=== PATIENT | female | born 1945 | race Caucasian/White ===

== ENCOUNTER 2018-07-07 15:14 | Inpatient (IN) | payer MEDICARE, OTHER ==
[~2018-07-07] VITALS: Ht 154.9 cm; Wt 123.8 kg
[2018-07-07 15:22] VITALS: BP 154/60
[2018-07-07] MEDS ORDERED: COLESTIPOL HCL1 G1 PO (15:24)
[2018-07-07] MEDS ORDERED: ALLOPURINOL 10100 M1 PO (15:24)
[2018-07-07] MEDS ORDERED: WELLBUTRIN 75 M75 M1 PO (15:24)
[2018-07-07] MEDS ORDERED: PROTONIX40 M1 PO (15:25)
[2018-07-07] MEDS ORDERED: LISINOPRIL10 MG PO (15:25)
[2018-07-07] MEDS ORDERED: INDAPAMIDE2.5 MG PO (15:25)
[2018-07-07] MEDS ORDERED: GLYBURIDE 2.52.5 MG PO (15:25)
[2018-07-07] MEDS ORDERED: TOPROL XL100 MG PO (15:25)
[2018-07-07] MEDS ORDERED: FLOMAX0.4 MG PO (15:26)
[2018-07-07] MEDS ORDERED: TYLENOL325 MG PO (15:26)
[2018-07-07] MEDS ORDERED: ZOLOFT50 MG PO (15:26)
[2018-07-07] MEDS ORDERED: ROPINIROLE HCL2 M1 PO (15:27)
[2018-07-07] MEDS ORDERED: [UNRECOGNIZED DRUG - OTHER] TOP (15:29)
[2018-07-07] MEDS ORDERED: ZANAFLEX2 MG PO (15:29)
[2018-07-07] MEDS ORDERED: FLORASTOR250 MG PO (15:30)
[2018-07-07] MEDS ORDERED: TRAMADOL 50 MG50 MG PO ×2 (15:30→15:31)
[2018-07-07] MEDS ORDERED: HYDROCORTISONE30 G9 RECTAL (15:30)
[2018-07-07 15:50] LABS: ABSOLUTE BASOPHILS 0.1 thou/uL (0.0-0.2); ABSOLUTE EOSINOPHILS 0.1 thou/uL (0.0-0.7); ABSOLUTE LYMPHOCYTES 1.2 thou/uL (0.8-5.3); ABSOLUTE MONOCYTES 0.5 thou/uL (0.0-1.2); ABSOLUTE NEUTROPHILS 4.2 thou/uL (1.6-8.1); BASOPHILS 0.9 %; EOSINOPHILS 2.3 %; HEMATOCRIT 39.3 % (37.0-47.0); HEMOGLOBIN 12.8 gm/dL (12.0-15.0); LYMPHOCYTES 19.4 %; MCH 27.8 pg (26.0-34.0); MCHC 32.5 g/dL (28.0-37.0); MCV 85.5 fL (80.0-100.0); MONOCYTES 7.9 %; MPV 8.4 fl. (7.2-11.1); NUCLEATED RBCS 0 /100WBC; PLATELET COUNT* 215 thou/uL (150-400); POLYS 69.5 %; RDW-CV 14.7 % (10.5-14.5)
[2018-07-07 15:58] LABS: ANION GAP 7 mmol/L (7-16); BUN 21 mg/dL (7-18); CALCIUM 8.4 mg/dL (8.5-10.1); CHLORIDE 103 mmol/L (98-107); CO2 29 mmol/L (21-32); CREATININE 1.3 mg/dL (0.6-1.3); GLUCOSE 172 mg/dL (70-99); POTASSIUM 3.4 mmol/L (3.5-5.1); SODIUM 139 mmol/L (136-145)
[2018-07-07 15:59] LABS: APTT 24.2 Seconds (25.0-31.3); PROTIME 10.7 Seconds (9.20-11.50)
[2018-07-07 16:09] LABS: ALKALINE PHOSPHATASE 104 U/L (46-116); NT-PRO BRAIN NAT PEPTIDE 1102 pg/mL (<300); SGOT 32 U/L (15-37); SGPT 29 U/L (30-65); TOTAL BILIRUBIN 0.6 mg/dL (<0.1-1.0); TROPONIN-I LEVEL <0.06 ng/mL (<0.06)
[2018-07-07 17:49] VITALS: BP 135/71
[2018-07-07 18:17] VITALS: BP 140/59
--- NOTE | 2018-07-07 19:56 | NUR ---
PATIENT ADMITTED TO ROOM 313 VIA ER 1800. PATIENT'S ADMISSION HISTORY AND VITALS OBTAINED CHARTED. PATIENT STATES FEELING GENERALIZED WEAKNESS, DENIES PAIN AT PRESENT TIME. PATIENT PROVIDED DINNER TRAY. DAUGHTER AT BEDSIDE TO HELP WITH ADMISSION HISTORY. HOME MEDS RECONCILED. ORIENTED TO ROOM, CALL LIGHT AND SURROUNDINGS. HOURLY ROUNDING MAINTAINED. CALL LIGHT WITHIN REACH. WILL CONTINUE WITH PLAN OF CARE.
[2018-07-07 23:42] VITALS: BP 122/51
[2018-07-08 04:26] LABS: CALCIUM 8.5 mg/dL (8.5-10.1); CREATININE 1.1 mg/dL (0.6-1.3); MAGNESIUM 1.5 mg/dL (1.8-2.4); POTASSIUM 3.4 mmol/L (3.5-5.1)
--- NOTE | 2018-07-08 05:23 | NUR ---
ASSESSMENT COMPLETE. PT SLEPT MOST OF THE NIGHT. PT REPORTS HEMORRHOID PAIN, TUCKS IN PLACE WITH RELIEF REPORTED. PT DENIES N/V. EDEMA NOTED TO BLE, ELEVATED WITH PILLOWS. PT IS Q2 TURN FOR SKIN INTEGRITY, REDNESS TO BUTTOCKS. PT IS ACCUCHECK. PT IS ON ROOM AIR WITH [place] SATS. PT IS FALL RISK, BED ALARM ON. UP WITH ONE ASSIST TO BSC. SEE ASSESSMENT AND VITALS FOR OTHER DETAILS. CALL LIGHT WITHIN REACH, WILL CONTINUE PLAN OF CARE
[2018-07-08 08:00] VITALS: BP 149/65
[2018-07-08 12:00] VITALS: BP 142/57
[2018-07-08 15:17] LABS: URINE BILIRUBIN NEGATIVE (Negative); URINE BLOOD TRACE (Negative); URINE CLARITY CLEAR; URINE COLOR YELLOW; URINE GLUCOSE-RANDOM NEGATIVE (Negative); URINE KETONES NEGATIVE (Negative); URINE NITRITE-REFLEX NEGATIVE (Negative); URINE PROTEIN NEGATIVE (Negative); URINE SPECIFIC GRAVITY 1.015 (1.005-1.030); URINE UROBILINOGEN 0.2 E.U./dl (0.2-1.0)
[2018-07-08 15:33] LABS: URINE LEUKOCYTES-REFLEX 2+ (Negative)
[2018-07-08 15:36] LABS: SQUAMOUS 4-10 Moderate /LPF (0-3)
[2018-07-08 15:37] LABS: BACTERIA-REFLEX >30 Many /HPF (None Seen); CASTS None Seen /LPF (None Seen); CRYSTALS None Seen /LPF (None Seen); URINE RBC 0-2 Rare /HPF (0-2)
--- NOTE | 2018-07-08 16:35 | NUR ---
SW met with pt to complete initial assessment, introduce self, and SW role. Pt lives at home alone. Pt was alert but fell asleep at times during conversation and may not be the best historian. Pt said she was at [facility] recently (she thinks she left on Thursday). Pt has children who live closeby. SW discussed safe dc planning and possible placement and pt is open to the thought of placement. SW to discuss with pt family as well. SW to continue to follow to assist with safe dc planning.
--- NOTE | 2018-07-08 16:36 | EKG ---
[place] [address] ELECTROCARDIOGRAM REPORT Name: SUDARSHAN MARSH Room: [address] ADM IN .R.#: [id number] Admission: 07/07/18 Attend Phys: Tio Ahmadi MD Discharge: Date of : 45 Report #: [id number] THIS REPORT FOR: //name// [facility] ED Test Date: 2018-07-07 Test Time: 15:22:08 Pat Name: SUDARSHAN MARSH Department: Room: [facility] Gender: F Switchboard Clerk: AM : 1945 Requested By: Nikos Herrera Order Number: [id number] MD: Gilbert Ayers Measurements Intervals [place] Rate: 89 P: 60 IA: 202 QRS: -37 QRSD: 101 T: 92 QT: 397 QTc: 484 Interpretive Statements Sinus rhythm Abnormal R-wave progression, late transition LVH with secondary repolarization abnormality No previous ECG available for comparison Electronically Signed On 07-08-2018 16:36:02 CDT by Gilbert Ayers [email or web address] <ELECTRONICALLY SIGNED> By: Gilbert Ayers MD, [facility] 07/08/18 1636 152 152 Gilbert Ayers MD, FAC /EPI
--- NOTE | 2018-07-08 16:41 | EKG ---
[place] [address] ELECTROCARDIOGRAM REPORT Name: MAXIMOSUDARSHAN Butler Room: [address] ADM IN M.R.#: [id number] Admission: 07/07/18 Attend Phys: Tio Ahmadi MD Discharge: Date of : 45 Report #: [id number] THIS REPORT FOR: //name// [facility] Test Date: 2018-07-07 Test Time: 21:46:48 Pat Name: SUDARSHAN MARSH Department: Room: [address] Gender: F [employer] Principal: : 1945 Requested By: Nikos Herrera Order Number: [id number] Milka MD: Gilbert Ayers Measurements Intervals [place] Rate: 82 P: 14 DE: 180 QRS: -31 QRSD: 100 T: 87 QT: 407 QTc: 476 Interpretive Statements Sinus rhythm Abnormal R-wave progression, late transition LVH with secondary repolarization abnormality No previous ECG available for comparison Electronically Signed On 07-08-2018 16:40:50 CDT by Gilbert Ayers [email or web address] <ELECTRONICALLY SIGNED> By: Gilbert Ayers MD, [facility] 07/08/18 1640 45 45 Gilbert Ayers MD, FACC /EPI
[2018-07-08 16:51] VITALS: BP 117/68
--- NOTE | 2018-07-08 18:15 | NUR ---
SHIFT NOTE - UA SENT THIS SHIFT. PT INC X 3 TODAY. UP TO COMMODE WITH ASSIST X 1. PT/OT WORKED WITH PT. TIERRA-CARE GIVEN TO REGION.
[2018-07-09] VITALS: BP 108/81
--- NOTE | 2018-07-09 05:06 | NUR ---
PT SLEPT THROUGH THE NIGHT. PT PLACED ON 2L PER NC, PT O2 ON ROOM AIR 87-89%. PT CURRENTLY 95% ON 2L. PT DOES NOT WEAR O2 AT HOME. PT SOA WITH MIN EXERTION. PT IS Q2 TURN FOR SKIN INTEGRITY. PT INCONT AT TIMES. PT/OT CURRENTLY ORDERED FOR WEAKNESS. PT IS UP ONE ASSIST WITH GAIT BELT AND WALKER TO BS. PT HAS IV IN RIGHT AC, SALINE LOCKED. PT IS FALL RISK, BED ALARM ON. SEE ASSESSMENT AND VITALS FOR OTHER DETAILS. CALL LIGHT WITHIN REACH, WILL CONTINUE PLAN OF CARE
[2018-07-09 05:34] LABS: CALCIUM 8.5 mg/dL (8.5-10.1); CREATININE 0.7 mg/dL (0.6-1.3); MAGNESIUM 1.4 mg/dL (1.8-2.4); POTASSIUM 4.1 mmol/L (3.5-5.1)
[2018-07-09 07:40] VITALS: BP 117/95
--- NOTE | 2018-07-09 15:52 | NUR ---
SW called and spoke with pt dtr Sabine about dc planning. Sabine expressed that she was aware that pt was found to have a UTI and is now on IV abx. SW discussed dc planning and pt dtr agrees pt would be unable to return home alone. [facility] was going to begin but never started as they too felt pt was not safe in home environment alone. Pt dtr hopeful for pt to be able to go to SNF again stating that she has more days available and asked to try [facility]. SW faxed referral to [facility]. SW discussed LTC placment needed if pt unable to be accepted to SNF. Pt dtr explained that they had looked into [facility] but they are unable to afford [facility] at this time. SW also discussed in home private duty care to consider as another option however that too would be expensive. SW to continue to follow to explore possible SNF at [facility] or LTC if SNF not an option and to continue to assist with safe dc planning.
--- NOTE | 2018-07-09 16:14 | NUR ---
PATIENT INCONTINENT OF URINE ALL SHIFT. PATIENT WOULDN'T INFORM NURSE THAT SHE WAS WET UNTIL NURSE WENT INTO TO CHECK ON PATIENT TO SEE IF PATIENT WAS WET. IV ROCEPHIN GIVEN THIS AM, PATIENT TO START PO ABX FOR URINE THIS EVENING. NO FURTHER COMPLAINTS OF PAIN AFTER TRAMADOL GIVEN THIS AM. MG REPLACED PER PROTOCOL FOR LEVEL OF 1.4, REDRAW SCHED FOR 1829. PATIENT TO TRANSFER TO ROOM 111 THIS SHIFT.
[2018-07-09 21:00] VITALS: BP 137/53
[2018-07-10 04:53] LABS: CALCIUM 8.5 mg/dL (8.5-10.1); CREATININE 0.9 mg/dL (0.6-1.3); MAGNESIUM 1.4 mg/dL (1.8-2.4); POTASSIUM 4.1 mmol/L (3.5-5.1)
--- NOTE | 2018-07-10 06:46 | NUR ---
PATIENT SLEPT PART OF THE NIGHT. PATIENT WAS GIVEN PAIN MEDICINE THREE TIMES WITH SOME RELIEF. PATIENT HAS BEEN STRESS INCONTINENT OF URINE AND UP TO URINATE FREQUENTLY. WILL CONTINUE TO MONITOR.
[2018-07-10 09:05] VITALS: BP 136/48
[2018-07-10 16:00] VITALS: BP 115/54
--- NOTE | 2018-07-10 19:22 | NUR ---
PATIENT REMAINED ALERT AND ORIENTED X'S 4. VITAL SIGNS AND SPO2 STABLE. IV CLEAN, FLUIDS INFUSING. BLOOD SUGARS WELL CONTROLLED. PAIN WELL CONTROLLED WITH PAIN MEDS. COMPLETED HOURLY ROUNDING. CALL LIGHT WITHIN REACH. WILL CONTINUE TO MONITOR.
[2018-07-10 21:00] VITALS: BP 149/59
[2018-07-11 04:49] LABS: HEMATOCRIT 40.8 % (37.0-47.0); HEMOGLOBIN 13.1 gm/dL (12.0-15.0); MCH 27.6 pg (26.0-34.0); MCHC 32.1 g/dL (28.0-37.0); MCV 85.8 fL (80.0-100.0); MPV 8.5 fl. (7.2-11.1); RBC 4.75 mil/uL (4.20-5.00); RDW-CV 15.4 % (10.5-14.5); WBC 5.6 thou/uL (4.0-11.0)
[2018-07-11 05:05] LABS: CALCIUM 9.2 mg/dL (8.5-10.1); MAGNESIUM 1.6 mg/dL (1.8-2.4); POTASSIUM 3.8 mmol/L (3.5-5.1)
--- NOTE | 2018-07-11 06:49 | NUR ---
PATIENT SLEPT MOST OF THE NIGHT. IV REMAINS SALINE LOCKED. PATIENT WAS GIVEN PAIN MEDICINE ONCE THIS SHIFT. BLOOD SUGAR WAS 58 LAST NIGHT ICE CREAM AND DIANA CRACKERS. BLOOD SUGAR WAS 68 IN HER LABS THIS MORNING APPLE JUICE WAS GIVEN. MAG IS STILL 1.6 IV MAG IS INFUSING PER DR ORDER. WILL CONTINUE TO MONITOR.
[2018-07-11 09:00] VITALS: BP 160/70
[2018-07-11 16:03] VITALS: BP 151/57
--- NOTE | 2018-07-11 20:12 | NUR ---
PATIENT REMAINED ALERT AND ORIENTED X'S 4. VITAL SIGNS AND SPO2 STABLE. IV CLEAN, FLUSHING. PATIENT DENIES PAIN THROUGHOUT SHIFT. TOLERATED DIET, NO NAUSEA AND VOMITING. VOIDED WITHOUT ISSUE AND PASSED BM. COMPLETED HOURLY ROUNDING. CALL LIGHT WITHIN REACH. WILL CONTINUE TO MONITOR.
[2018-07-11 21:00] VITALS: BP 97/46
[2018-07-12] VITALS: BP 151/49
[2018-07-12 08:07] LABS: HEMATOCRIT 39.9 % (37.0-47.0); HEMOGLOBIN 12.9 gm/dL (12.0-15.0); MCH 27.7 pg (26.0-34.0); MCHC 32.2 g/dL (28.0-37.0); MCV 85.8 fL (80.0-100.0); MPV 8.4 fl. (7.2-11.1); RBC 4.65 mil/uL (4.20-5.00); WBC 6.6 thou/uL (4.0-11.0)
--- NOTE | 2018-07-12 08:42 | NUR ---
ALERT AND ORIENTED X4. UP WITH 1 ASSIST TO BEDSIDE COMMODE. PAIN MEDICATION GIVEN WITH SOME RELIEF BUTTOCK AND BACK PAIN. HAVING DIARRHEA AND BUTTOCK AREA RED. CALL LIGHT WITHIN REACH. PROGRESSING TOWARD DISCHARGE GOAL.
[2018-07-12 08:51] LABS: CALCIUM 8.7 mg/dL (8.5-10.1); TOTAL BILIRUBIN 0.6 mg/dL (<0.1-1.0); TOTAL PROTEIN 6.5 g/dL (6.4-8.2)
[2018-07-12 09:00] VITALS: BP 131/41
[2018-07-12 09:06] VITALS: BP 151/49
[2018-07-12 09:21] VITALS: BP 131/41
--- NOTE | 2018-07-12 12:02 | NUR ---
CALLED SECOND TIME TO [facility] TO SEE IF SHE HAD RECEIVED REFERRAL ON THURSDAY FROM [facility] AND IF THEY COULD ACCEPT PT.TODAY. HAD TO LEAVE A VM. PT.HAS DISCHARGE ORDERS FOR TODAY.
--- NOTE | 2018-07-12 14:18 | NUR ---
[facility] CALLED AND SAID THEY CAN ACCEPT PT.TODAY TO A SKILLED BED. THEY WILL PICK HER UP VIA [facility] V[facility] AT 1600. THEY DO NOT HAVE A PRIVATE ROOM PT.REQUESTED BUT [facility] SAID THEY PUT HER ON LIST TO MOVE HER SOON ONE BECOMES AVAILABLE. INFORMED PT.OF ABOVE. BARAK CALLED DAUGHTER,HORACE TO NOTIFY OF ABOVE.
[2018-07-12] MEDS ORDERED: CEFUROXIME250 MG PO (14:32)
--- NOTE | 2018-07-12 16:13 | NUR ---
REPORT CALLED TO PEMA AT [facility] [place]. PATIENT DISCHARGED VIA WHEELCHAIR VAN AT THIS TIME. ALL BELONGINGS SENT WITH PATIENT.
== END 2018-07-12 16:10 | DRG 689 ==
LOC: M.ERS 15:14 → M.3W 17:08 → M.TBA-ER 17:08 → M.3W 17:59 → M.ORTHSURG 07-09 17:13
PROVIDERS: Family Medicine; ADMIT Internal Medicine
DX: N39.0 Urinary tract infection, site not specified (principal); G92 Toxic encephalopathy; Z68.43 Body mass index [BMI] 50.0-59.9, adult; F32.9 Major depressive disorder, single episode, unspecified; I50.9 Heart failure, unspecified; I11.0 Hypertensive heart disease with heart failure; Z96.659 Presence of unspecified artificial knee joint; R07.9 Chest pain, unspecified; G25.81 Restless legs syndrome; G47.00 Insomnia, unspecified; G89.29 Other chronic pain; E66.01 Morbid (severe) obesity due to excess calories; R29.6 Repeated falls; Z66 Do not resuscitate; F41.1 Generalized anxiety disorder; E87.6 Hypokalemia; E83.42 Hypomagnesemia; T50.995A Adverse effect of other drugs, medicaments and biological substances, initial encounter; E11.649 Type 2 diabetes mellitus with hypoglycemia without coma; Y92.89 Other specified places as the place of occurrence of the external cause; Z79.899 Other long term (current) drug therapy; Z88.0 Allergy status to penicillin; Z88.6 Allergy status to analgesic agent; Z88.8 Allergy status to other drugs, medicaments and biological substances